=== PATIENT | male | born 1950 | race Caucasian/White ===

== ENCOUNTER → 2019-02-18 | Outpatient (CLI) | payer MEDICARE ==
--- NOTE | 2019-02-18 23:08 | MR ---
"MRI CERVICAL SPINE: CLINICAL HISTORY: Cervical disc disorder and cord compression positive Babinski, numbness, and muscle wasting with leg weakness all per order. Neck pain causing bilateral upper extremity weakness and ti ngling for 6 months per patient. TECHNIQUE: Multiplanar, multisequence imaging of the cervical spine is performed without and with IV contrast, 10 cc of gadolinium was given intravenously. COMPARISON: None. FINDINGS: Sagittal images of the cervical spine show the craniocervical junction to appear within nor mal limits. The cervical and upper thoracic spinal cord shows area of diminished AP diameter and inc reased signal C3-C4 disc space level sagittal images 6 through 8. The vertebral body heights are nor mal. Moderate disc space narrowing C2-C3 level mild to moderate disc space narrowing C5-C6 level. Mo derate to severe disc space narrowing C6-C7 and C7-T1 levels. Mild to moderate anterior spurring mid to lower cervical levels. Slight grade 1 retrolisthesis C5 on C6. The bone marrow signal intensity is within normal limits. No suspicious postcontrast enhancement. Axial images at the C2-C3 level shows left-sided uncovertebral facet degenerative changes contributin g to moderate left-sided neural foraminal narrowing. Axial images at C3-C4 levels with broad-based posterior disc protrusion effacing the anterior thecal sac which has AP diameter narrowing and central abnormal signal and uncovertebral facet degenerative changes causing moderate left-sided neural foraminal narrowing. Right-sided neural foramen is patent. Axial images at C4-C5 level showed broad based right paracentral disc protrusion effacing anterior th ecal sac up to ventral surface of spinal cord with uncovertebral facet degenerative changes causing m oderate left greater than right bilateral neural foraminal narrowing. Axial images at C5-C6 level showed prominent right paracentral/foraminal disc protrusion effacing the ventral thecal sac and causing advanced right with moderate to advanced left-sided neural foraminal narrowing. Axial images at C6-C7 levels with broad-based posterior disc protrusion effaces the anterior thecal s ac and causing advanced bilateral neural foraminal narrowing on axial image 15. Axial images at C7-T1 levels with broad-based posterior disc protrusion mildly effacing the anterior thecal sac and causing moderate bilateral neural foraminal narrowing. IMPRESSION: Multilevel fairly advanced degenerative changes of the cervical spine as detailed above. Cord compression with myelomalacia because of advanced degenerative changes are thought present at C3 -C4 level. Further details as noted above. A Yellow level critical message alert has been initiated for Robby Woodard DO via the [employer] 36 0 | Critical Results System on 02/18/2019 11:05 PM. This message alert has been sent to Robby arreola DO via the preferences provided by the clinician for the receipt of Radiology Critical Findings. Sobia essage ID [id number]."
== END | disposition home or self-care (01) ==
LOC: RADMRIMAIN 20:06
PROVIDERS: ATTEND Psychiatry & Neurology Neurology
DX: M48.02 Spinal stenosis, cervical region (principal); M48.03 Spinal stenosis, cervicothoracic region; M99.71 Connective tissue and disc stenosis of intervertebral foramina of cervical region; M50.01 Cervical disc disorder with myelopathy, high cervical region; M47.12 Other spondylosis with myelopathy, cervical region
CPT/HCPCS: 72156; A9585

== ENCOUNTER → 2019-02-20 | Outpatient (CLI) | payer MEDICARE ==
--- NOTE | 2019-02-20 11:02 | XR ---
EXAMINATION TYPE: XR chest 2V DATE OF EXAM: 02/20/2019 COMPARISON: NONE TECHNIQUE: PA and lateral views submitted. HISTORY: Presurgical FINDINGS: The lungs are clear and there is no pneumothorax, pleural effusion, or focal pneumonia. Arthropathy of the shoulders. Hypertrophic and degenerative changes spine. No overt failure. Large hiatal hernia noted. Hyperinflation suggests COPD. IMPRESSION: 1. No acute process. 2. Large hiatal hernia.
== END | disposition home or self-care (01) ==
LOC: RADXRMAIN 10:45
PROVIDERS: ATTEND Orthopaedic Surgery Orthopaedic Surgery of the Spine
DX: K44.9 Diaphragmatic hernia without obstruction or gangrene (principal)
CPT/HCPCS: 71046

== ENCOUNTER → 2019-03-03 | Outpatient (CLI) | payer MEDICARE ==
[2019-03-03 11:15] LABS: Basophils # (A) 0.1 k/uL (0-0.2); Basophils % (A) 1 %; Eosinophils # (A) 0.1 k/uL (0-0.7); Eosinophils % (A) 1 %; HCT 53.8 % (39.0-53.0); HGB 17.5 gm/dL (13.0-17.5); Lymphocytes # (A) 1.2 k/uL (1.0-4.8); Lymphocytes % (A) 17 %; MCH 28.6 pg (25.0-35.0); MCHC 32.5 g/dL (31.0-37.0); Mean Platelet Volume 7.6; Monocytes # (A) 0.6 k/uL (0-1.0); Monocytes % (A) 9 %; Neutrophils # (A) 4.7 k/uL (1.3-7.7); Neutrophils % (A) 69 %; Platelet Count 184 k/uL (150-450); RBC 6.11 m/uL (4.30-5.90); RDW 13.3 % (11.5-15.5); WBC 6.9 k/uL (3.8-10.6)
[2019-03-03 11:16] LABS: Appearance,Urine Clear (Clear); Bilirubin,Urine Negative (Negative); Blood,Urine Negative (Negative); Color,Urine Yellow; Glucose,Urine (UA) Negative (Negative); Ketones,Urine Negative (Negative); Leukocyte Esterase,Urine Negative (Negative); Nitrite,Urine Negative (Negative); Protein,Urine Negative (Negative); Specific Gravity,Urine 1.026 (1.001-1.035); Urobilinogen,Urine <2.0 mg/dL (<2.0)
[2019-03-03 11:27] LABS: Calcium 9.8 mg/dL (8.4-10.2); Potassium 4.4 mmol/L (3.5-5.1)
[2019-03-03 11:52] LABS: INR 0.9 (<1.2); Partial Thromboplastin Time 23.7 sec (22.0-30.0); Prothrombin Time 10.2 sec (9.0-12.0)
== END | disposition home or self-care (01) ==
LOC: LABPAT 10:22
PROVIDERS: ATTEND Orthopaedic Surgery Orthopaedic Surgery of the Spine
DX: Z01.812 Encounter for preprocedural laboratory examination (principal); M48.02 Spinal stenosis, cervical region; Z51.81 Encounter for therapeutic drug level monitoring; Z79.01 Long term (current) use of anticoagulants
CPT/HCPCS: 36415; 80048; 81003; 85025; 85610; 85730; 86850; 86900; 86901

== ENCOUNTER 2019-03-11 11:12 | Inpatient (IN) | payer MEDICARE ==
[2019-03-04 11:58] VITALS: BMI 29.8
[~2019-03-11 11:12] MED LIST: BACITRACIN 50,000 UNIT, POLYMYXIN B 500,000 UNIT in SODIUM CHLORIDE 0.9% IRRIGATIO 1,00... IRRIGATION ONE; DEXAMETHASONE SOD PHOSPHATE 10 MG/ML 1 ML VIAL IV ONE; LIDOCAINE 1% 20 ML VIAL (10MG/ML) FOR IV START INTRADERMA PRN; MIDAZOLAM 2 MG/2 ML VIAL IV PRN; ONDANSETRON 4 MG/2 ML VIAL IVP ONE; SCOPOLAMINE 1.5MG/72HR PATCH TRANSDERM ONE
[2019-03-11] MEDS: LACTATED RINGERS 1,000 ML IV SCH (11:56)
[2019-03-11] MEDS ORDERED: HYDROmorphone (PF) 1 MG/ML ONE (13:19)
[2019-03-11] MEDS ORDERED: fentaNYL (PF) 50 MCG/ML 2 ML AMP ONE (13:19)
[2019-03-11] MEDS ORDERED: NEOSTIGMINE 1 MG/ML 10 ML VIAL ONE (13:19)
[2019-03-11] MEDS ORDERED: DEXAMETHASONE SOD PHOS (MDV) 100 MG/10 ML VIAL ONE (13:19)
[2019-03-11] MEDS ORDERED: GLYCOPYRROLATE 0.2 MG/ML 2 ML VIAL ONE (13:19)
[2019-03-11] MEDS ORDERED: KETAMINE 10 MG/ML 20 ML VIAL ONE (13:19)
[2019-03-11] MEDS ORDERED: MIDAZOLAM 2 MG/2 ML VIAL ONE (13:19)
[2019-03-11] MEDS ORDERED: SUCCINYLCHOLINE CHLORIDE 100 MG/5 ML SYR IV ONE (13:19)
[2019-03-11] MEDS ORDERED: ePHEDrine SULFATE/0.9% NACL/PF 50 MG/5 ML SYRINGE IV ONE (13:19)
[2019-03-11] MEDS ORDERED: ROCURONIUM BROMIDE 10 MG/ML 10 ML VIAL IV ONE (13:19)
[2019-03-11] MEDS ORDERED: PROPOFOL 10 MG/ML 20 ML VIAL IV ONE (13:19)
[2019-03-11] MEDS ORDERED: LIDOCAINE 1% INJ 10MG/ML (20 ML MDV) ONE (13:19)
[2019-03-11] MEDS ORDERED: GELATIN SPONGE,ABSORB (LARGE) 1 EACH SPONGE TOPICAL ONE (13:25)
[2019-03-11] MEDS ORDERED: LIDOCAINE 0.5%-EPI 1:200,000 50 ML VIAL SQ ONE (13:25)
[2019-03-11] MEDS ORDERED: THROMBIN (BOVINE) 5,000 UNIT VIAL TOPICAL ONE (13:25)
[2019-03-11] MEDS ORDERED: LACTATED RINGERS 1,000 ML IV ONE ×2 (13:46→15:18)
--- NOTE | 2019-03-11 17:09 | XR ---
EXAMINATION TYPE: XR cervical spine 1V DATE OF EXAM: 03/11/2019 COMPARISON: MRI cervical spine February 18, 2019 HISTORY: Spinal stenosis and neck pain. TECHNIQUE: Single crosstable lateral view of cervical spine is obtained intraoperatively. FINDINGS: There is anterior fusion plate C3-C7 levels with artificial radiodense disc material. Satis factory alignment is seen on intraoperative lateral projection. Overlying endotracheal tube is partia lly imaged. IMPRESSION: As above.
[2019-03-11] MEDS ORDERED: ACETAMINOPHEN TAB 325 MG TAB PO PRN (17:12)
[2019-03-11] MEDS ORDERED: MAGNESIUM HYDROXIDE 2,400 MG/10 ML CUP PO PRN (17:12)
[2019-03-11] MEDS ORDERED: HYDROmorphone 1 MG/ML 1 ML SYRINGE IVP PRN (17:12)
[2019-03-11] MEDS ORDERED: ONDANSETRON 4 MG/2 ML VIAL IVP PRN (17:12)
[2019-03-11] MEDS ORDERED: HYDROmorphone 0.5 MG/0.5 ML SYRINGE IVP PRN (17:12)
[2019-03-11] MEDS ORDERED: SODIUM CHLORIDE 0.9% 1,000 ML IV SCH (17:15)
--- NOTE | 2019-03-11 17:18 | P.OP ---
Date of Procedure: 03/11/19 Preoperative Diagnosis: Cervical myelopathy, cervical myelomalacia, severe cervical stenosis C3 4 C4 5 C5 6 C6 7, upper extremity weakness, upper extremity radiculopathy, neck pain, degenerative disc disease, herniated nucleus pulposus C3 4 C4 5 C5 6 C6 7 Postoperative Diagnosis: Same Anesthesia: GETA Pathology: none sent Condition: stable Disposition: PACU Description of Procedure: BRIEF OPERATIVE NOTE Preoperative Diagnosis:Cervical myelopathy, cervical myelomalacia, severe cervical stenosis C3 4 C4 5 C5 6 C6 7, upper extremity weakness, upper extremity radiculopathy, neck pain, degenerative disc disease, herniated nucleus pulposus C3 4 C4 5 C5 6 C6 7 Postoperative Diagnosis:Cervical myelopathy, cervical myelomalacia, severe cervical stenosis C3 4 C4 5 C5 6 C6 7, upper extremity weakness, upper extremity radiculopathy, neck pain, degenerative disc disease, herniated nucleus pulposus C3 4 C4 5 C5 6 C6 7 Procedure: Anterior cervical decompression with discectomy and fusion C3 4 C4 5 C5 6 C6 7 Placement of interbody graftC3 4 C4 5 C5 6 C6 7 Application of anterior cervical plate [phone] Surgeon: Dr. Frias Security Nurse: water filtration technician used as first aid officer Anesthesia: General anesthesia Estimated blood loss: Approximately 100 mL Complications: None apparent Components implanted: K2M Mccormick anterior cervical plate system with 1014 mm screws and Vikos interbody allograft bone graft Disposition: To recovery room in good stable condition. OPERATIVE INDICATIONS The patient has had long-standing issues in their neck and upper extremities. He was having severe worsening of his symptoms with evidence for weakness at his upper extremities and changes in his gait his lower extremities and changes in his dexterity. He was exhibiting signs of myelopathy and had evaluation with neurology which showed evidence of myelomalacia. They referred to our office he was seen which showed severe stenosis along with the myelomalacia. He was having evidence of myelopathy and had severe stenosis at C3 4 C4 5 C5 6 and C6 7. The patient has been having worsening symptoms despite conservative management. The patient has been through conservative treatment. We discussed various treatment options including surgery, and the patient wishes to proceed with surgery We discussed the risk, patient's alternatives and benefits of surgery including but not limited to, risk of bleeding risk of infection, risk of need for further surgery, risk of decreased, loss of motion, muscle function, malunion nonunion, hardware failure, nerve damage, paralysis, heart attack, and . OPERATIVE SUMMARY After discussing all the risks, patient alternatives and benefits at length, the patient elected to proceed with surgical intervention, signed informed consent, and presented for their procedure. The patient was seen and examined in the preoperative holding area and the surgical site was marked. The patient was given antibiotics and brought to the operating room. The patient was positioned on the operating room table in a supine position being careful to pad any bony prominences and pressure points. The patient was sedated and intubated by anesthesia in standard fashion. Once the airway and C- spine were stabilized the patient's arms were padded and tucked at her side, with her shoulders gently taped. The head was placed in a donut pad with the neck in good neutral alignment and position. We were careful to maintain the patient's cervical spine and good neutral alignment and position throughout. The patient was prepped and draped in a normal standard fashion. An appropriate timeout and keystone protocol performed. We were able to proceed with the surgery. The local wound area was infiltrated with local anesthetic. An incision was made transversely approximately 2-1/2 cm over the appropriate levels at C4 5. Dissection was taken down subcutaneously to the level of the platysma which was split in line with its fibers. Dissection was taken with a carotid approach, with the trachea and esophagus medial and the carotid sheath laterally. We dissected down to the anterior surface of the vertebral bodies from C3 to C7. Intraoperative x-ray was taken which showed a marker at the appropriate level of C5 6. With the appropriate level positively confirmed, we were able to proceed with discectomy at the appropriate levels. I started at C3 4 and then moved to C4 5 and then C5 6 and then C6 7. All of the operative levels were exposed appropriately. The patient had all their twitches back, and there was no evidence of recurrent laryngeal issue. The wound was copiously irrigated and suctioned dry as had been done periodically throughout the case. At the appropriate level/levels, I established an annulotomy with an 11 blade scalpel. A discectomy was performed with a combination of pituitary rongeurs, curettes, a high-speed bur, and Kerrison rongeurs. The posterior longitudinal ligament was taken down as were any posterior osteophytes. There was severe anterior and posterior osteophytes and severe central and bilateral foraminal stenosis at each level causing some fear decompression at the cord. I was able to relieve this with the decompression centrally and at the bilateral neural foramen. This gave good central and bilateral foraminal decompression. There is no evidence of any dural tear or leak. The endplates were prepared with a high-speed bur. With the endplates in good parallel position, I was able to size for the appropriate size interbody graft. The wound was irrigated and suctioned dry the graft was prepared and malleted into position. It had good alignment and position with the anterior surface flush with the anterior surface of the vertebral bodies. This was done similarly the appropriate levels first at C3 4 than at C4 5 and then C5 6 and then C6 7. With the grafts intact, I was able to measure and contour and appropriate sized plate. The plate was positioned at the midline over the appropriate levels from C3 to 7. Screw holes were established with a hand drill and drill guide. Screws were placed in good alignment and position with excellent bony purchase. They were seated under the locking device. The construct was checked and found to be stable. Intraoperative x-ray was taken which showed good alignment and position of the implants at the appropriate levels. There was no evidence of any dural tear or leak. Good hemostasis was maintained. The wound was copiously irrigated and suctioned dry as had been done periodically throughout the case. The platysma was closed with absorbable suture. The subcutaneous tissue was closed. The subcuticular tissue was closed with absorbable suture. The wound was cleaned and dried and dressed appropriately. A soft cervical collar was placed appropriately. The patient was woken up by anesthesia, extubated, transferred back gently to their hospital bed and brought to the recovery room in good stable condition. The patient will be admitted to the hospital for appropriate postoperative care, medical management and monitoring. We will continue to follow them closely about the postoperative course.
[2019-03-11] MEDS: HYDROmorphone 0.5 MG/0.5 ML SYRINGE IVP PRN ×5 (17:30→18:10)
[2019-03-11] MEDS: BENZOCAINE/MENTHOL LOZENG 1 EACH LOZENGE MUCOUS MEM PRN (23:51)
[2019-03-12] MEDS: LACTATED RINGERS 1,000 ML IV SCH (01:10)
[2019-03-12] MEDS: HYDROcodone/APAP 5-325MG 1 EACH TAB PO PRN ×2 (01:14→10:51)
[2019-03-12] MEDS ORDERED: PANTOPRAZOLE 40 MG TABLET PO SCH (07:30)
[2019-03-12 08:02] VITALS: BP 125/72; PULSE 68; RESP 16; TEMP 98.1
[2019-03-12] MEDS: BENZOCAINE/MENTHOL LOZENG 1 EACH LOZENGE MUCOUS MEM PRN (08:33)
[2019-03-12] MEDS ORDERED: amLODIPine 5 MG TAB PO SCH (09:00)
[2019-03-12] MEDS ORDERED: MULTIVITAMINS, THERA 1 EACH TAB PO SCH (09:00)
[2019-03-12] MEDS ORDERED: LISINOPRIL 20 MG TAB PO SCH (09:00)
--- NOTE | 2019-03-12 09:13 | P.DS ---
Providers Date of admission: 03/11/19 11:12 Attending physician: Franklyn Frias Primary care physician: Jeff Howe [facility] Hospital Course: The patient presented on the day of admission as per their operative note. He had severe cervical stenosis with cervical myelopathy and myelomalacia with weakness. He underwent his surgical procedure as per his operative note and today he says he is feeling his arms have made some improvement already. He has been up and around out of bed and voiding freely. He is tolerating his diet adequately. His pain is well-controlled. Physical Exam The incision site is clean dry and intact. There is no erythema no drainage. There is no purulence no evidence of infection. His neck is soft and supple without any significant swelling. There is no active drainage. Abdomen soft and nontender. Chest has good excursion with deep inspiration and expiration. The patient has active and passive range of motion intact at the upper and lower extremities. There is no acute change in neurologic status. He says some weakness particularly of his left upper extremity but he is able to mobilize well. Hospital Course Postoperative day #1 status post anterior cervical decompression with discectomy and fusion C3 4 C4 5 C5 6 and C6 7 for severe cervical stenosis with cervical myelopathy and myelomalacia and weakness. The patient has been making good progress postoperatively. He feels his upper extremities are already making some improvement. They have completed the prophylactic antibiotics without any signs or symptoms of infection. The patient has been able to advance their diet, and is tolerating diet adequately. The pain was initially controlled with IV medications and is now controlled appropriately with oral medications. The patient has been able to increase their mobilization. The patient has progressed appropriately. I think they are in good stable condition for discharge today. They will be sent home with appropriate prescriptions. I answered their questions to the best of my ability in a language that they can understand and they are agreeable with the plan. They will follow up as directed in approximately 2 weeks or sooner if he is having problems. Patient Condition at Discharge: Good Plan - Discharge Summary Discharge Rx Participant: Yes New Discharge Prescriptions: New HYDROcodone/APAP 5-325MG [Lucile 5] 1 each PO Q4HR PRN #42 tab PRN Reason: Pain No Action predniSONE 10 mg PO DAILY Multivitamins, Thera [Multivitamin (formulary)] 1 tab PO DAILY amLODIPine BESYLATE/BENAZEPRIL [amLODIPine BESYLATE/BENAZEPRIL 5-20 MG] 1 tab PO QAM Omeprazole Magnesium [PriLOSEC OTC] 20 mg PO QAM Discharge Medication List Multivitamins, Thera [Multivitamin (formulary)] 1 tab PO DAILY 03/04/19 [History] Omeprazole Magnesium [PriLOSEC OTC] 20 mg PO QAM 03/04/19 [History] amLODIPine BESYLATE/BENAZEPRIL [amLODIPine BESYLATE/BENAZEPRIL 5-20 MG] 1 tab PO QAM 03/04/19 [History] predniSONE 10 mg PO DAILY 03/04/19 [History] HYDROcodone/APAP 5-325MG [Lucile 5] 1 each PO Q4HR PRN #42 tab 03/11/19 [Rx] Follow up Appointment(s)/Referral(s): Franklyn Frias DO [Doctor of Osteopathic Medicine] - 03/24/19 3:00 pm Activity/Diet/Wound Care/Special Instructions: Keep site clean. May shower with waterproof Tegaderm intact. Do not soak in a tub. After 72 hours postoperatively, patient May remove dressing and then may shower with area uncovered. Leave Steri-Strips intact and allow them to fray off on their own. May ambulate as tolerated. Avoid heavy or rigorous activity. No repetitive bending twisting or lifting. No overhead work. Discharge Disposition: HOME SELF-CARE
--- NOTE | 2019-03-12 10:06 | XR ---
EXAMINATION TYPE: XR cervical spine 1V DATE OF EXAM: 03/11/2019 COMPARISON: NONE HISTORY: Intraoperative localization TECHNIQUE: Single crosstable lateral view submitted FINDINGS: Single crosstable lateral view demonstrates endotracheal tube. There is multilevel hypertro phic and degenerative disc disease. Pelvic surgical instrument is seen along the anterior margin of t he disc space of C5-C6. Appears to be retrolisthesis of C2 relative to C3 which should be correlated clinically and there is mild prominence the prevertebral soft tissue structures. Correlate with addit ional imaging as clinically warranted. IMPRESSION: See above
== END 2019-03-12 12:35 | disposition home or self-care (01) | DRG 472 ==
LOC: 2ORMAIN 11:12 → 4SSUR 17:14
PROVIDERS: ADMIT Orthopaedic Surgery Orthopaedic Surgery of the Spine; ATTEND Orthopaedic Surgery Orthopaedic Surgery of the Spine
PROC: 0RT30ZZ Resection of Cervical Vertebral Disc, Open Approach (ICD-10-PCS; principal; 2019-03-11 12:15)
PROC: 0RG20J0 Fusion of 2 or more Cervical Vertebral Joints with Synthetic Substitute, Anterior Approach, Anterior Column, Open Approach (ICD-10-PCS; principal; 2019-03-11 12:15)
DX: M48.02 Spinal stenosis, cervical region (principal); M47.12 Other spondylosis with myelopathy, cervical region; M50.221 Other cervical disc displacement at C4-C5 level; M50.222 Other cervical disc displacement at C5-C6 level; M50.223 Other cervical disc displacement at C6-C7 level; M54.12 Radiculopathy, cervical region; Z79.52 Long term (current) use of systemic steroids; Z79.899 Other long term (current) drug therapy; Z82.49 Family history of ischemic heart disease and other diseases of the circulatory system
CPT/HCPCS: 72020; 86850; 86900; 86901

== ENCOUNTER → 2020-07-26 | Outpatient (CLI) | payer MEDICARE | END | disposition home or self-care (01) | LOC: CPPFTMAIN 11:55 | PROVIDERS: ATTEND Internal Medicine | DX: R05 Cough (principal) | CPT/HCPCS: 94060; 94726; 94729 ==

== ENCOUNTER 2023-01-11 17:49 | Emergency (ER) | payer MEDICARE ==
[2023-01-11 18:23] VITALS: TEMP 98.1
[2023-01-11] MEDS ORDERED: LIDOCAINE 1% INJ 10MG/ML (20 ML MDV) SQ ONE (21:40)
--- NOTE | 2023-01-11 21:41 | ED ---
General Adult HPI - General Chief complaint: Wound/Laceration Stated complaint: Cut L Hand around Base of Thumb Time Seen by Provider: 01/11/23 21:28 Source: patient Mode of arrival: ambulatory Limitations: no limitations - History of Present Illness Initial comments: 72-year-old male presented to the ED with a chief complaint of laceration. Patient states that a ratchet strap recoiled on him and hit his left hand. Now notes a laceration to his left hand. No other injuries at this time. Tetanus status up-to-date. No other complaints. - Related Data Home Medications Medication Instructions Recorded Confirmed Multivitamins, Thera [Multivitamin 1 tab PO DAILY 03/04/19 03/11/19 (formulary)] Omeprazole Magnesium [PriLOSEC OTC] 20 mg PO QAM 03/04/19 03/11/19 amLODIPine BESYLATE/BENAZEPRIL 1 tab PO QAM 03/04/19 03/11/19 [amLODIPine BESYLATE/BENAZEPRIL 5-20 MG] predniSONE 10 mg PO DAILY 03/04/19 03/04/19 Previous Rx's Medication Instructions Recorded HYDROcodone/APAP 5-325MG [Kendalia 5] 1 each PO Q4HR PRN #42 tab 03/11/19 Cephalexin [Keflex] 500 mg PO Q6HR 5 Days #20 cap 01/11/23 Allergies Allergy/AdvReac Type Severity Reaction Status Date / Time No Known Allergies Allergy Verified 01/11/23 18:19 Review of Systems ROS Statement: Those systems with pertinent positive or pertinent negative responses have been documented in the HPI. ROS Other: All systems not noted in ROS Statement are negative. Past Medical History Past Medical History: GERD/Reflux, Hypertension History of Any Multi-Drug Resistant Organisms: None Reported Past Surgical History: No Surgical Hx Reported Additional Past Surgical History / Comment(s): Colonoscopy. Past Anesthesia/Blood Transfusion Reactions: No Reported Reaction Additional Past Anesthesia/Blood Transfusion Reaction / Comment(s): Has never had general anesthesia. Past Psychological History: No Psychological Hx Reported Smoking Status: Never smoker Past Alcohol Use History: Rare Past Drug Use History: None Reported - Past Family History Mother Family Medical History: Cancer Additional Family Medical History / Comment(s): Breast cancer. Sister(s) Family Medical History: Cancer Additional Family Medical History / Comment(s): Breast Cancer. General Exam Limitations: no limitations General appearance: alert, in no apparent distress Head exam: Present: atraumatic, normocephalic Neck exam: Present: normal inspection Respiratory exam: Present: normal lung sounds bilaterally Cardiovascular Exam: Present: regular rate Extremities exam: Present: other (Full flexion, extension, opposition of the left thumb. Approximately 4 inch laceration in the palmar surface of the left hand near the first finger) Neurological exam: Present: alert, oriented X3 Skin exam: Present: warm, dry Course Vital Signs 01/11/23 18:18 Temperature 98.1 F Pulse Rate 70 Respiratory 20 Rate Blood Pressure 134/81 O2 Sat by Pulse 99 Oximetry Procedures - Laceration Laceration #1 Site: upper extremity Size (cm): 6 Description: linear Depth: simple, single layer Anesthetic Used: lidocaine 1%, without epi Anesthesia Technique: local infiltration Amount (mls): 5 Pre-repair: wound explored, irrigated extensively, deep structures intact Type of Sutures: nylon Size of Sutures: 4-0 Number of Sutures: 7 Technique: simple, interrupted Patient Tolerated Procedure: well, no complications Medical Decision Making - Medical Decision Making Was pt. sent in by a medical professional or institution (Dr. PA, VACUUM CLEANER REPAIRER, urgent care, hospital, or halfway...) When possible be specific @ -No Did you speak to anyone other than the patient for history (EMS, parent, family, police, friend...)? What history was obtained from this source @ -No Did you review nursing and triage notes (agree or disagree)? Why? @ -I reviewed and agree with nursing and triage notes Were old charts reviewed (outside hosp., previous admission, EMS record, old EKG, old radiological studies, urgent care reports/EKG's, halfway records)? Report findings @ -No old charts were reviewed Differential Diagnosis (chest pain, altered mental status, abdominal pain women, abdominal pain men, vaginal bleeding, weakness, fever, dyspnea, syncope, headache, dizziness, GI bleed, back pain, seizure, CVA, palpatations, mental health, musculoskeletal)? @ -Acute fracture, acute ligamentous injury. This is not meant to be an all- inclusive list. EKG interpreted by me (3pts min.). @ -None X-rays interpreted by me (1pt min.). @ -None done CT interpreted by me (1pt min.). @ -None done U/S interpreted by me (1pt. min.). @ -None done What testing was considered but not performed or refused? (CT, X-rays, U/S, labs)? Why? @ -None What meds were considered but not given or refused? Why? @ -None Did you discuss the management of the patient with other professionals (professionals i.e. Dr., PA, VACUUM CLEANER REPAIRER, lab, RT, psych nurse, outreach and education social worker, sock folder, teacher, chief nursing officer, comp field case manager)? Give summary @ -No Was smoking cessation discussed for >3mins.? @ -No Was critical care preformed (if so, how long)? @ -No Were there social determinants of health that impacted care today? How? (H omelessness, low income, unemployed, alcoholism, drug addiction, transportation, low edu. Level, literacy, decrease access to med. care, shelter, rehab)? @ -No Was there de-escalation of care discussed even if they declined (Discuss DNR or withdrawal of care, Hospice)? DNR status @ -No What co-morbidities impacted this encounter? (DM, HTN, Smoking, COPD, CAD, Cancer, CVA, ARF, Chemo, Hep., AIDS, mental health diagnosis, sleep apnea, morbid obesity)? @ -None Was patient admitted / discharged? Hospital course, mention meds given and route, prescriptions, significant lab abnormalities, going to OR and other pertinent info. @ -Discharge 72-year-old male presents to ED with a chief complaint of laceration to his left hand. Tetanus status up-to-date. Laceration repaired. For further details please see procedure note. Covered with bacitracin and dressed. Provided prescription for Keflex. He is charged home in stable condition. Discussed return precautions with patient verbalizes agreement. Undiagnosed new problem with uncertain prognosis? @ -No Drug Therapy requiring intensive monitoring for toxicity (Heparin, Nitro, Insulin, Cardizem)? @ -No Were any procedures done? @ -No Diagnosis/symptom? @ -Laceration, left hand Acute, or Chronic, or Acute on Chronic? @ -Acute Uncomplicated (without systemic symptoms) or Complicated (systemic symptoms)? @ -Uncomplicated Side effects of treatment? @ -No Exacerbation, Progression, or Severe Exacerbation? @ -No Poses a threat to life or bodily function? How? (Chest pain, [place], CA, pneumonia, PE, COPD, DKA, ARF, appy, cholecystitis, CVA, Diverticulitis, Homicidal, Suicidal, threat to staff... and all critical care pts) @ -No Disposition Clinical Impression: Laceration Disposition: HOME SELF-CARE Condition: Good Instructions (If sedation given, give patient instructions): Care For Your Stitches (ED) Additional Instructions: Please return to the Emergency Department if symptoms worsen or any other concerns. Return in 10-14 days for suture removal. Please monitor for signs of infection. Prescriptions: Cephalexin [Keflex] 500 mg PO Q6HR 5 Days #20 cap Is patient prescribed a controlled substance at d/c from ED?: No Referrals: Jesus Hanson MD [Primary Care Provider] - 1-2 days Time of Disposition: 22:45
[2023-01-11] MEDS ORDERED: BACITRACIN OINT 1 EACH PACKET TOPICAL ONE (22:24)
[2023-01-11 23:07] VITALS: BP 146/84; PULSE 63; RESP 18
== END 2023-01-11 22:56 | disposition home or self-care (01) ==
LOC: EC 17:49
DX: S61.412A Laceration without foreign body of left hand, initial encounter (principal); K21.9 Gastro-esophageal reflux disease without esophagitis; I10 Essential (primary) hypertension; Z79.899 Other long term (current) drug therapy; W27.8XXA Contact with other nonpowered hand tool, initial encounter
CPT/HCPCS: 99282; 12002; J2001

== ENCOUNTER 2023-07-15 02:36 | Emergency (ER) | payer MEDICARE ==
[2023-07-15 02:57] VITALS: TEMP 98.4
--- NOTE | 2023-07-15 03:01 | ED ---
SOB HPI - General Chief Complaint: Shortness of Breath Stated Complaint: MANNY Time Seen by Provider: 07/15/23 02:45 Source: patient, EMS Mode of arrival: EMS Limitations: no limitations - History of Present Illness Initial Comments: This patient is a 73-year-old man who presents with complaint that he is having shortness of breath. The symptoms have come on over the course of the past few hours. Patient denied having fever or chills. Occasional nonproductive cough is present. No chest pain. Patient denies change in urination or bowel movements. No leg pain. MD Complaint: shortness of breath, cough -: hour(s) Severity scale (1-10): 0 Consistency: constant Improves With: nothing Worsens With: nothing Associated Symptoms: cough - Related Data Home Oxygen Therapy: No Home Medications Medication Instructions Recorded Confirmed Multivitamins, Thera [Multivitamin 1 tab PO DAILY 03/04/19 03/11/19 (formulary)] Omeprazole Magnesium [PriLOSEC OTC] 20 mg PO QAM 03/04/19 03/11/19 amLODIPine BESYLATE/BENAZEPRIL 1 tab PO QAM 03/04/19 03/11/19 [amLODIPine BESYLATE/BENAZEPRIL 5-20 MG] predniSONE 10 mg PO DAILY 03/04/19 03/04/19 Previous Rx's Medication Instructions Recorded HYDROcodone/APAP 5-325MG [[place] 5] 1 each PO Q4HR PRN #42 tab 03/11/19 Cephalexin [Keflex] 500 mg PO Q6HR 5 Days #20 cap 01/11/23 Allergies Allergy/AdvReac Type Severity Reaction Status Date / Time No Known Allergies Allergy Verified 07/15/23 02:41 Review of Systems ROS Statement: Those systems with pertinent positive or pertinent negative responses have been documented in the HPI. ROS Other: All systems not noted in ROS Statement are negative. Constitutional: Denies: fever, chills, weakness Respiratory: Reports: cough, dyspnea. Denies: hemoptysis Cardiovascular: Denies: chest pain, palpitations, edema, syncope Gastrointestinal: Denies: abdominal pain, nausea, vomiting, diarrhea Genitourinary: Denies: dysuria, hematuria Musculoskeletal: Denies: back pain Skin: Denies: rash Neurological: Denies: headache, weakness, numbness Past Medical History Past Medical History: GERD/Reflux, Hypertension History of Any Multi-Drug Resistant Organisms: None Reported Past Surgical History: No Surgical Hx Reported Additional Past Surgical History / Comment(s): Colonoscopy. Past Anesthesia/Blood Transfusion Reactions: No Reported Reaction Additional Past Anesthesia/Blood Transfusion Reaction / Comment(s): Has never had general anesthesia. Past Psychological History: No Psychological Hx Reported Smoking Status: Never smoker Past Alcohol Use History: Rare Past Drug Use History: None Reported - Past Family History Mother Family Medical History: Cancer Additional Family Medical History / Comment(s): Breast cancer. Sister(s) Family Medical History: Cancer Additional Family Medical History / Comment(s): Breast Cancer. General Exam General appearance: alert, in no apparent distress Head exam: Present: atraumatic, normocephalic Eye exam: Present: normal appearance. Absent: scleral icterus, conjunctival injection ENT exam: Present: normal oropharynx Neck exam: Present: normal inspection Respiratory exam: Present: wheezes. Absent: respiratory distress, rales, rhonchi, stridor, accessory muscle use, decreased breath sounds, prolonged expiratory Cardiovascular Exam: Present: regular rate, normal rhythm, normal heart sounds. Absent: systolic murmur, diastolic murmur, rubs, gallop GI/Abdominal exam: Present: soft. Absent: distended, tenderness, guarding, rebo und, rigid, mass Extremities exam: Present: normal inspection, normal capillary refill. Absent: pedal edema, calf tenderness Back exam: Present: normal inspection. Absent: CVA tenderness (R), CVA tenderness (L) Neurological exam: Present: alert Skin exam: Present: warm, dry, intact, normal color. Absent: rash Course Vital Signs 07/15/23 07/15/23 07/15/23 02:37 02:43 03:35 Temperature 98.4 F Pulse Rate 90 96 Respiratory 22 24 Rate Blood Pressure 184/65 O2 Sat by Pulse 96 Oximetry 07/15/23 07/15/23 03:41 06:14 Temperature Pulse Rate 90 70 Respiratory 97 H 18 Rate Blood Pressure 145/87 138/84 O2 Sat by Pulse 96 97 Oximetry Medical Decision Making - Medical Decision Making The patient had chest x-ray that I interpreted as negative for acute infiltrate, pneumothorax, congestive heart failure Was pt. sent in by a medical professional or institution (, PA, CERNER ANALYST, urgent care, hospital, or fdc...) When possible be specific @ -[No] Did you speak to anyone other than the patient for history (EMS, parent, family, police, friend...)? What history was obtained from this source @ -[No] Did you review nursing and triage notes (agree or disagree)? Why? @ -[I reviewed and agree with nursing and triage notes] Were old charts reviewed (outside hosp., previous admission, EMS record, old EKG, old radiological studies, urgent care reports/EKG's, fdc records)? Report findings @ -[No old charts were reviewed] Differential Diagnosis (chest pain, altered mental status, abdominal pain women, abdominal pain men, vaginal bleeding, weakness, fever, dyspnea, syncope, headache, dizziness, GI bleed, back pain, seizure, CVA, palpatations, mental health, musculoskeletal)? @ -[Differential Dyspnea: Coronary syndrome, arrhythmia, tamponade, asthma, COPD, pulmonary embolism, pneumonia, pneumothorax, pulmonary effusion, anaphylaxis, diabetic ketoacidosis, flailed chest, pulmonary contusion, diaphragmatic rupture, anemia, neuromuscular, this is not meant to be an all-inclusive list. EKG interpreted by me (3pts min.). @ -[I interpreted as above] X-rays interpreted by me (1pt min.). @ -[I interpreted as above CT interpreted by me (1pt min.). @ -[None done] U/S interpreted by me (1pt. min.). @ -[None done] What testing was considered but not performed or refused? (CT, X-rays, U/S, labs)? Why? @ -[None] What meds were considered but not given or refused? Why? @ -[None] Did you discuss the management of the patient with other professionals (professionals i.e. , PA, CERNER ANALYST, lab, RT, psych nurse, manager social work, booth usher, teacher, medical scientific officer, compliance program manager)? Give summary @ -[No] Was smoking cessation discussed for >3mins.? @ -[No] Was critical care preformed (if so, how long)? @ -[No] Were there social determinants of health that impacted care today? How? (Homelessness, low income, unemployed, alcoholism, drug addiction, transportation, low edu. Level, literacy, decrease access to med. care, fdc, rehab)? @ -[No] Was there de-escalation of care discussed even if they declined (Discuss DNR or withdrawal of care, Hospice)? DNR status @ -[No] What co-morbidities impacted this encounter? (DM, HTN, Smoking, COPD, CAD, Cancer, CVA, ARF, Chemo, Hep., AIDS, mental health diagnosis, sleep apnea, morbid obesity)? @ -[None] Was patient admitted / discharged? Hospital course, mention meds given and route, prescriptions, significant lab abnormalities, going to OR and other pertinent info. @ -[The patient was feeling better following treatment and after discussion wanted to go home, will return if symptoms recur or new symptoms develop. Undiagnosed new problem with uncertain prognosis? @ -[No] Drug Therapy requiring intensive monitoring for toxicity (Heparin, Nitro, Insulin, Cardizem)? @ -[No] Were any procedures done? @ -[No] Diagnosis/symptom? @ -[Acute bronchospasm Acute, or Chronic, or Acute on Chronic? @ -[Acute Uncomplicated (without systemic symptoms) or Complicated (systemic symptoms)? @ -[Uncomplicated Side effects of treatment? @ -[No] Exacerbation, Progression, or Severe Exacerbation? @ -[No] Poses a threat to life or bodily function? How? (Chest pain, USA, ND, pneumonia, PE, COPD, DKA, ARF, appy, cholecystitis, CVA, Diverticulitis, Homicidal, Suicidal, threat to staff... and all critical care pts) @ -[No] - Lab Data Result diagrams: 07/15/23 02:45 07/15/23 02:45 Lab Results 07/15/23 07/15/23 07/15/23 Range/Units 02:45 02:45 02:45 WBC 6.8 (3.8-10.6) k/uL RBC 5.55 (4.30-5.90) m/uL Hgb 16.1 (13.0-17.5) gm/dL Hct 49.6 (39.0-53.0) % MCV 89.3 (80.0-100.0) fL MCH 28.9 (25.0-35.0) pg MCHC 32.4 (31.0-37.0) g/dL RDW 14.3 (11.5-15.5) % Plt Count 122 L (150-450) k/uL MPV 9.2 Neutrophils % 51 % Lymphocytes % 17 % Monocytes % 8 % Eosinophils % 20 % Basophils % 1 % Neutrophils # 3.5 (1.3-7.7) k/uL Lymphocytes # 1.1 (1.0-4.8) k/uL Monocytes # 0.5 (0-1.0) k/uL Eosinophils # 1.4 H (0-0.7) k/uL Basophils # 0.1 (0-0.2) k/uL PT 11.3 (10.0-12.5) sec INR 1.0 (<1.2) APTT 24.2 (22.0-30.0) sec VBG pH (7.31-7.41) VBG pCO2 (37-51) mmHg VBG HCO3 (24-28) mmol/L Sodium 139 (137-145) mmol/L Potassium 4.1 (3.5-5.1) mmol/L Chloride 107 (98-107) mmol/L Carbon Dioxide 24 (22-30) mmol/L Anion Gap 8 mmol/L BUN 11 (9-20) mg/dL Creatinine 0.89 (0.66-1.25) mg/dL Est GFR (CKD-EPI)AfAm >90 (>60 ml/min/1.73 sqM) Est GFR (CKD-EPI)NonAf 86 (>60 ml/min/1.73 sqM) Glucose 97 (74-99) mg/dL Plasma Lactic Acid Freddy (0.7-2.0) mmol/L Calcium 9.0 (8.4-10.2) mg/dL Total Bilirubin 1.3 (0.2-1.3) mg/dL AST 37 (17-59) U/L ALT 30 (4-49) U/L Alkaline Phosphatase 69 (38-126) U/L Troponin I (0.000-0.034) ng/mL NT-Pro-B Natriuret Pep 105 pg/mL Total Protein 6.8 (6.3-8.2) g/dL Albumin 4.0 (3.5-5.0) g/dL Influenza Type A (PCR) (Not Detectd) Influenza Type B (PCR) (Not Detectd) RSV (PCR) (Not Detectd) SARS-CoV-2 (PCR) (Not Detectd) 07/15/23 07/15/23 07/15/23 Range/Units 02:45 02:45 03:03 WBC (3.8-10.6) k/uL RBC (4.30-5.90) m/uL Hgb (13.0-17.5) gm/dL Hct (39.0-53.0) % MCV (80.0-100.0) fL MCH (25.0-35.0) pg MCHC (31.0-37.0) g/dL RDW (11.5-15.5) % Plt Count (150-450) k/uL MPV Neutrophils % % Lymphocytes % % Monocytes % % Eosinophils % % Basophils % % Neutrophils # (1.3-7.7) k/uL Lymphocytes # (1.0-4.8) k/uL Monocytes # (0-1.0) k/uL Eosinophils # (0-0.7) k/uL Basophils # (0-0.2) k/uL PT (10.0-12.5) sec INR (<1.2) APTT (22.0-30.0) sec VBG pH 7.39 (7.31-7.41) VBG pCO2 43 (37-51) mmHg VBG HCO3 26 (24-28) mmol/L Sodium (137-145) mmol/L Potassium (3.5-5.1) mmol/L Chloride (98-107) mmol/L Carbon Dioxide (22-30) mmol/L Anion Gap mmol/L BUN (9-20) mg/dL Creatinine (0.66-1.25) mg/dL Est GFR (CKD-EPI)AfAm (>60 ml/min/1.73 sqM) Est GFR (CKD-EPI)NonAf (>60 ml/min/1.73 sqM) Glucose (74-99) mg/dL Plasma Lactic Acid Freddy 1.4 (0.7-2.0) mmol/L Calcium (8.4-10.2) mg/dL Total Bilirubin (0.2-1.3) mg/dL AST (17-59) U/L ALT (4-49) U/L Alkaline Phosphatase (38-126) U/L Troponin I <0.012 (0.000-0.034) ng/mL NT-Pro-B Natriuret Pep pg/mL Total Protein (6.3-8.2) g/dL Albumin (3.5-5.0) g/dL Influenza Type A (PCR) (Not Detectd) Influenza Type B (PCR) (Not Detectd) RSV (PCR) (Not Detectd) SARS-CoV-2 (PCR) (Not Detectd) 07/15/23 Range/Units 04:19 WBC (3.8-10.6) k/uL RBC (4.30-5.90) m/uL Hgb (13.0-17.5) gm/dL Hct (39.0-53.0) % MCV (80.0-100.0) fL MCH (25.0-35.0) pg MCHC (31.0-37.0) g/dL RDW (11.5-15.5) % Plt Count (150-450) k/uL MPV Neutrophils % % Lymphocytes % % Monocytes % % Eosinophils % % Basophils % % Neutrophils # (1.3-7.7) k/uL Lymphocytes # (1.0-4.8) k/uL Monocytes # (0-1.0) k/uL Eosinophils # (0-0.7) k/uL Basophils # (0-0.2) k/uL PT (10.0-12.5) sec INR (<1.2) APTT (22.0-30.0) sec VBG pH (7.31-7.41) VBG pCO2 (37-51) mmHg VBG HCO3 (24-28) mmol/L Sodium (137-145) mmol/L Potassium (3.5-5.1) mmol/L Chloride (98-107) mmol/L Carbon Dioxide (22-30) mmol/L Anion Gap mmol/L BUN (9-20) mg/dL Creatinine (0.66-1.25) mg/dL Est GFR (CKD-EPI)AfAm (>60 ml/min/1.73 sqM) Est GFR (CKD-EPI)NonAf (>60 ml/min/1.73 sqM) Glucose (74-99) mg/dL Plasma Lactic Acid Freddy (0.7-2.0) mmol/L Calcium (8.4-10.2) mg/dL Total Bilirubin (0.2-1.3) mg/dL AST (17-59) U/L ALT (4-49) U/L Alkaline Phosphatase (38-126) U/L Troponin I (0.000-0.034) ng/mL NT-Pro-B Natriuret Pep pg/mL Total Protein (6.3-8.2) g/dL Albumin (3.5-5.0) g/dL Influenza Type A (PCR) Not Detected (Not Detectd) Influenza Type B (PCR) Not Detected (Not Detectd) RSV (PCR) Not Detected (Not Detectd) SARS-CoV-2 (PCR) Not Detected (Not Detectd) - EKG Data -: EKG Interpreted by Pr EKG shows normal: sinus rhythm, axis (normal), intervals (normal), QRS complexes (low-voltage QRS complex), ST-T waves (normal) Rate: normal (rate 84 bpm) Disposition Clinical Impression: Bronchospasm Disposition: HOME SELF-CARE Condition: Good Instructions (If sedation given, give patient instructions): Bronchospasm (ED) Is patient prescribed a controlled substance at d/c from ED?: No Referrals: Jesus Hanson MD [Primary Care Provider] - 1-2 days Wendy Whelan MD [STAFF PHYSICIAN] - 1-2 days
[2023-07-15 03:29] LABS: VBG PH 7.39 (7.31-7.41)
--- NOTE | 2023-07-15 03:30 | XR ---
EXAMINATION TYPE: XR chest 2V DATE OF EXAM: 07/15/2023 COMPARISON: Chest x-ray February 20, 2019 HISTORY: Difficulty in breathing. TECHNIQUE: Frontal and lateral views of the chest are obtained. FINDINGS: There is no focal air space opacity, pleural effusion, or pneumothorax seen. The cardiac silhouette size is stable and within normal limits. Moderate-sized hiatal hernia is redemonstrated. Surgical changes to lower cervical spine is noted. IMPRESSION: No acute cardiopulmonary process. No significant change from prior.
[2023-07-15] MEDS: ALBUTEROL NEBULIZED 2.5 MG/3 ML INHALATION STA (03:34)
[2023-07-15 03:39] LABS: Basophils # (A) 0.1 k/uL (0-0.2); Basophils % (A) 1 %; Eosinophils # (A) 1.4 k/uL (0-0.7); Eosinophils % (A) 20 %; HCT 49.6 % (39.0-53.0); HGB 16.1 gm/dL (13.0-17.5); Lymphocytes # (A) 1.1 k/uL (1.0-4.8); Lymphocytes % (A) 17 %; MCH 28.9 pg (25.0-35.0); MCHC 32.4 g/dL (31.0-37.0); MCV 89.3 fL (80.0-100.0); Mean Platelet Volume 9.2; Monocytes # (A) 0.5 k/uL (0-1.0); Monocytes % (A) 8 %; Neutrophils # (A) 3.5 k/uL (1.3-7.7); Neutrophils % (A) 51 %; Platelet Count 122 k/uL (150-450); RBC 5.55 m/uL (4.30-5.90); RDW 14.3 % (11.5-15.5); WBC 6.8 k/uL (3.8-10.6)
[2023-07-15 03:41] LABS: Partial Thromboplastin Time 24.2 sec (22.0-30.0); Prothrombin Time 11.3 sec (10.0-12.5)
[2023-07-15 03:44] LABS: ALT 30 U/L (4-49); AST 37 U/L (17-59); African American GFR (CKD) >90 (>60 ml/min/1.73 sqM); Alkaline Phosphatase 69 U/L (38-126); Anion Gap 8 mmol/L; Blood Urea Nitrogen 11 mg/dL (9-20); Carbon Dioxide 24 mmol/L (22-30); Chloride 107 mmol/L (98-107); Glucose 97 mg/dL (74-99); Non-African American GFR(CKD) 86 (>60 ml/min/1.73 sqM); Potassium 4.1 mmol/L (3.5-5.1); Sodium 139 mmol/L (137-145); Total Bilirubin 1.3 mg/dL (0.2-1.3); Total Protein 6.8 g/dL (6.3-8.2)
[2023-07-15 03:52] LABS: NT-Pro-B-Type Natriuretic Pept 105 pg/mL
[2023-07-15 06:41] VITALS: BP 138/84; PULSE 70; RESP 18
== END 2023-07-15 06:34 | disposition home or self-care (01) ==
LOC: EC 02:36
DX: J98.01 Acute bronchospasm (principal)
CPT/HCPCS: 36415; 71046; 80053; 82803; 83605; 83880; 84484; 85025; 85610; 85730; 87636; 93005; 94640; 99285

== ENCOUNTER → 2023-07-15 | Outpatient (CLI) | payer MEDICARE ==
--- NOTE | 2023-07-15 11:19 | US ---
EXAMINATION TYPE: US venous doppler duplex LE DATE OF EXAM: 07/15/2023 11:03 AM COMPARISON: NONE CLINICAL INDICATION: Male, 73 years old with history of I82.403 ACUTE EMBOLISM AND THOMBOS UNSP DEEP VEINS; Edema bilateral legs SIDE PERFORMED: bilateral TECHNIQUE: The lower extremity deep venous system is examined utilizing real time linear array sonog dian with graded compression, doppler sonography and color-flow sonography. VESSELS IMAGED: Common Femoral Vein Deep Femoral Vein Greater Saphenous Vein * Femoral Vein Popliteal Vein Small Saphenous Vein * Proximal Calf Veins (* superficial vessels) Right Leg: No evidence of DVT Left Leg: No evidence of DVT IMPRESSION: Grayscale, color doppler, spectral doppler imaging performed of the deep veins of the lo wer extremities. There is normal flow, compressibility, vascular waveforms.
== END | disposition home or self-care (01) ==
LOC: RADUSWWP 10:36
PROVIDERS: ATTEND Internal Medicine
DX: I82.403 Acute embolism and thrombosis of unspecified deep veins of lower extremity, bilateral (principal)
CPT/HCPCS: 93970

== ENCOUNTER → 2023-11-29 | Outpatient (CLI) | payer MEDICARE ==
--- NOTE | 2023-12-19 18:08 | MR ---
Patient: Luis Alberto Vázquez A Ordering Physician: Unknown, Unknown ID: [id number] Phone, Pager: Phone: N/A Pager: N/A : [phone] Age/Gender: 73Y, M Primary Location: N/A Procedure: MRI PROSTATE W/WO Study Date: 11/29/2023 7:19:32 AM EXAMINATION TYPE: MR Prostate wo/w con DATE OF EXAM: 12/01/2023 8:03 AM COMPARISON: None. CLINICAL INDICATION: Elevated PSA positive biopsy. TECHNIQUE: Multi-planar, multi-sequence imaging of the pelvis is performed prior to and following the uncomplicated administration of bolus intravenous gadolinium. CONTRAST: 11 cc Gadavist. Interpretive Criteria: PI-RADS v2.1 SERUM PSA: = 2.73, = 8.48 SURGICAL PATHOLOGY: 04/16/2022 adenocarcinoma right mid 3+3 [place] 6 FINDINGS: Prostatic dimensions: 6.8 x 6.0 x 4.0 cm. Ellipsoid Volume:85.45 (PSA density=0.10 ng/mL/mL) CENTRAL GLAND (Central and Transition Zones/CZ+TZ): Multiple bilateral, heterogenous appearing hypertrophic stromal nodules, without suspicious lesion. (PI-RADS 2) PERIPHERAL ZONE (PZ): Bilateral linear, indistinct wedgelike areas of low ADC, and low T2 signal, No evidence of masslike a bnormality, or localized perfusional hypervascularity, to further suggest a focus of clinically signi ficant prostate cancer. (PI-RADS 2) SEMINAL VESICLES (SV): Symmetric and unremarkable. PERIPROSTATIC TISSUES: Unremarkable. LYMPH NODES: No enlarged pelvic lymph node. REMAINING PELVIS: Bladder wall is within normal limits given distention. No abnormal free or organized intrapelvic fluid collection. No pathologic bowel dilation or mural thickening. No hernia visualized, fatty changes in the inguinal canals. OSSEOUS STRUCTURES: No suspicious osseous abnormality. IMPRESSION: 1. No specific features for high-risk prostate cancer. Maximum PI-RADS score: 2. 2. Substantial BPH, estimated gland volume 85.45 mL. 3. No suspicious osseous lesion. No lymphadenopathy. No evidence of prostate adenocarcinoma involving the periprostatic tissues.
== END | disposition home or self-care (01) ==
LOC: RADMRIMAIN 07:38
PROVIDERS: ATTEND Urology
DX: C61 Malignant neoplasm of prostate (principal); N40.0 Benign prostatic hyperplasia without lower urinary tract symptoms
CPT/HCPCS: 72197; A9585